=== PATIENT | female | born 1945 | race Caucasian/White ===

== ENCOUNTER 2022-05-04 16:12 | Inpatient (IN) | payer OTHER ==
[~2022-05-04] VITALS: Ht 147.3 cm; Wt 44.5 kg
--- NOTE | 2022-05-04 16:37 | NUR ---
Patient is in CT scan@this time.
[2022-05-04] MEDS ORDERED: MORPHINE SULFATE 2 MG/1 ML DISP.SYRIN ONE (16:47)
[2022-05-04] MEDS ORDERED: SITA50TA PO (16:50)
[2022-05-04] MEDS ORDERED: CLOP75TA15 PO (16:50)
[2022-05-04] MEDS ORDERED: ATOR40TA PO (16:50)
[2022-05-04] MEDS ORDERED: BENA40TA8 PO (16:50)
[2022-05-04 16:57] LABS: CREATININE 0.6 mg/dL (0.6-1.3); POTASSIUM 3.3 mmol/L (3.5-5.1)
[2022-05-04] MEDS ORDERED: MORPHINE SULFATE 2 MG/1 ML DISP.SYRIN IV ONE (17:00)
[2022-05-04 17:08] LABS: BILIRUBIN,TOTAL 0.2 mg/dL (0.2-1.0); TOTAL PROTEIN, SERUM 5.5 g/dL (6.4-8.2)
[2022-05-04 17:12] LABS: HEMATOCRIT 28.5 % (31.2-41.9); MEAN CORPUSCULAR HEMOGLOBIN 30.1 uug (24.7-32.8); MEAN CORPUSCULAR VOLUME 92.7 fL (75.5-95.3); PLATELET COUNT (AUTO) 164 K/uL (179-408)
--- NOTE | 2022-05-04 17:28 | NUR ---
Patient is resting comfortably on gurney with eyes closed, no moaning heard and less restlessness seen, respiration:easy.
[2022-05-04 18:17] LABS: *BILIRUBIN,URIN NEGATIVE (NEGATIVE); *BLOOD, URINE NEGATIVE (NEGATIVE); *CLARITY,URINE CLEAR (CLEAR); *COLOR,URINE YELLOW (YELLOW); *KETONES,URINE NEGATIVE (NEGATIVE); *UROBILINOGEN,URINE 0.2 E.U./dl (NORMAL); LEUKOCYTE ESTERASE ,URINE NEGATIVE (NEGATIVE); NITRITE, URINE NEGATIVE (NEGATIVE); UGLUCOSE NEGATIVE (NEGATIVE)
--- NOTE | 2022-05-04 18:34 | NUR ---
Patient ambulated to bathroom from room 1A with one-person assist. Patient's daughter said that she can not take care of her mother now and that the patient needs more intensive nursing care.
--- NOTE | 2022-05-04 18:44 | NUR ---
"Plan to admit " per Dr Alvarado. Nursing endless track vehicle supervisor Jose Luis, ER registration staff Opal and 3rd floor staff Sundeep notified.
[2022-05-04] MEDS ORDERED: CIPROFLOXACIN HCL 250 MG TABLET PO ONE (18:45)
--- NOTE | 2022-05-04 18:48 | NUR ---
Still for COVID swab & po Cipro, nursing hands off report given to ALEXX Burgos.
--- NOTE | 2022-05-04 19:17 | NUR ---
Patient is waiting for available medical-surgical nurse & bed. [facility] hsopitalist BERNARDINO Gaines accepted the patient. SBAR to ALEXX Encarnacion
--- NOTE | 2022-05-04 19:18 | NUR ---
SBAR REPORT RECEIVED FROM ALEXX RODRÍGUEZ.
--- NOTE | 2022-05-04 20:21 | NUR ---
ASSISTED PT TO AMBULATE TO RESTROOM, STEADY GAIT, DENIES ANY DIZZYNESS/PRASAD. NO SOB OR LABORED BREATHING.
--- NOTE | 2022-05-04 21:34 | NUR ---
GAVE REPOT TO ALEXX RODRIGUEZ.
--- NOTE | 2022-05-04 21:40 | NUR ---
REPORT RECEIVED FROM ER NURSE SRAAH. PT WILL BE ADMITTED TO [facility].
[2022-05-04] MEDS ORDERED: DEXTROSE 50% 50 ML DISP.SYRIN IV PRN (22:00)
[2022-05-04] MEDS ORDERED: INSULIN REGULAR, HUMAN 300 UNIT/3 ML VIAL SQ PRN (22:00)
[2022-05-04] MEDS ORDERED: REMEDY ESSENTIAL ZINC PASTE 113 GM TP PRN (22:00)
[2022-05-04] MEDS ORDERED: ONDANSETRON 4 MG/2 ML VIAL IV PRN (22:00)
[2022-05-04] MEDS ORDERED: POTASSIUM CHLORIDE 20 MEQ TAB.PRT.SR PO ONE (22:00)
[2022-05-04 22:30] VITALS: BP 163/68
[2022-05-04 23:00] VITALS: BP 163/68
--- NOTE | 2022-05-04 23:00 | NUR ---
RECEIVED PT FROM ER ON A GOURNEY. PT IS AOX3, AMBULATORY W/ ASSIST, FARCI SPEAKING BUT CAN UNDERTAND LITTLE KENYAN. PRIMARY DX IS ABDOMINAL PAIN/ DIARRHEA SECONDARY TO FAILURE TO THRIVE. PT SKIN IS INTACT. IV ACCESS ON LEFT HAND 22G SALINE LOCK.
--- NOTE | 2022-05-04 23:10 | NUR ---
Pt. admitted to Med Surg , under care of George Gaines Belongs List completed
[2022-05-05] MEDS: ENOXAPARIN SODIUM 40 MG/0.4 ML DISP.SYRIN SQ SCH ×2 (00:09→20:46)
[2022-05-05 04:00] VITALS: BP 147/63
[2022-05-05] MEDS: BLOOD SUGAR DIAGNOSTIC 1 EACH STRIP VI SCH ×4 (06:07→20:51)
[2022-05-05] MEDS: PANTOPRAZOLE SODIUM 40 MG TABLET.DR PO SCH (06:08)
[2022-05-05 06:42] LABS: HEMATOCRIT 32.1 % (31.2-41.9); MEAN CORPUSCULAR HEMOGLOBIN 30.8 uug (24.7-32.8); MEAN CORPUSCULAR VOLUME 94.5 fL (75.5-95.3); PLATELET COUNT (AUTO) 192 K/uL (179-408)
[2022-05-05 07:09] LABS: THYROID STIMULATING HORMONE 0.626 mIU/mL (0.358-3.740)
[2022-05-05 07:27] LABS: CREATININE 0.6 mg/dL (0.6-1.3); MAGNESIUM 1.6 mg/dL (1.8-2.4)
[2022-05-05 07:52] VITALS: BP 142/70
--- NOTE | 2022-05-05 09:31 | NUR ---
Patient sleeping. Will administer medication when patient awakens.
[2022-05-05] MEDS: CLOPIDOGREL 75 MG TABLET PO SCH (09:49)
[2022-05-05] MEDS: ACETAMINOPHEN 325 MG TABLET PO PRN ×2 (09:49→20:46)
[2022-05-05] MEDS: BENAZEPRIL HCL 20 MG TABLET PO SCH (09:50)
[2022-05-05] MEDS ORDERED: POTASSIUM CHLORIDE 50 ML IV SCH (11:00)
[2022-05-05] MEDS ORDERED: MAGNESIUM OXIDE 400 MG TABLET PO ONE (11:00)
--- NOTE | 2022-05-05 12:06 | NUR ---
Patient pulled out IV line numerous times. Attempted to start new line, unsuccessful. Order for midline insertion placed. George LEBRON notified. insurance office supervisor, Magdalena, notified.
[2022-05-05] MEDS ORDERED: FLEET ENEMA 133 ML BOTTLE RC ONE (12:30)
[2022-05-05] MEDS ORDERED: POTASSIUM CHLORIDE 20 MEQ POWDER PACKET PO ONE ×2 (13:00→15:00)
[2022-05-05] MEDS ORDERED: POTASSIUM CHLORIDE 10 MEQ, LIDOCAINE-MPF 1% 1 ML in IV DEXTROSE 5% 100 ML IV SCH (14:00)
[2022-05-05 14:59] VITALS: BP 122/56
--- NOTE | 2022-05-05 15:04 | NUR ---
Patient only able to take sips of Klor-con powder, mixed with water. Left at bedside to help promote hydration .
[2022-05-05] MEDS: GLUCERNA SHAKE 237 ML CAN PO SCH (17:29)
[2022-05-05] MEDS ORDERED: ATORVASTATIN 40 MG TABLET PO SCH ×2 (18:00→21:00)
--- NOTE | 2022-05-05 18:34 | NUR ---
Patient received care well throughout shift despite language barrier. Patient unwilling to finish medications given, because patient did not want to. Reinforced to patient the importance of taking medications, such as Klor-Con. Patient constantly needing to be reminded to take medication, but still unwilling. Will endorse information to PM nurse on perhaps switching back to IV meds, if midline placed, and patient stops pulling on lines. Bed left in lowest position with call light within reach. Comfort measures provided. Will endorse information to PM nurse.
--- NOTE | 2022-05-05 19:30 | NUR ---
Pt awake,alert and orientedx3. Pt in no acute distress. Pt have no iv access. Pt encourage to drink her Klor-Con. Pt just wants to take sip of it. Safety and comfort provided. Will continue to monitor.
[2022-05-05 20:06] VITALS: BP 124/58
--- NOTE | 2022-05-06 00:04 | NUR ---
[facility] Dr. Biswas ordered Soft wrist restraint bilateral. Pt trying to pull out her Iv and the kerlix placed on top of her IV.
[2022-05-06 04:06] VITALS: BP 130/65
--- NOTE | 2022-05-06 05:45 | NUR ---
Pt assisted to the restroom. Pt removed her IV and squeezing the blood . Pt assisted back to bed.
[2022-05-06] MEDS: PANTOPRAZOLE SODIUM 40 MG TABLET.DR PO SCH (06:10)
[2022-05-06] MEDS: BLOOD SUGAR DIAGNOSTIC 1 EACH STRIP VI SCH ×2 (06:37→11:51)
--- NOTE | 2022-05-06 06:42 | NUR ---
Pt in no acute distress. Prescribed medication given and pt tolerated it well. Pt stable. Pt assisted to the restroom. Pt forgetful and Pt needs reorientation. Pt vital signs stable. Self inflicted injury on her right hand noted where she pulled her Iv and squeezed her blood ; photo taken and put on the chart. Will endorse to incoming nurse for continuity of care.
[2022-05-06 06:59] LABS: HEMATOCRIT 30.8 % (31.2-41.9); MEAN CORPUSCULAR VOLUME 92.9 fL (75.5-95.3); PLATELET COUNT (AUTO) 193 K/uL (179-408)
[2022-05-06 07:10] LABS: CREATININE 0.7 mg/dL (0.6-1.3); MAGNESIUM 1.7 mg/dL (1.8-2.4); POTASSIUM 3.5 mmol/L (3.5-5.1)
[2022-05-06] MEDS: GLUCERNA SHAKE 237 ML CAN PO SCH (08:49)
[2022-05-06] MEDS: CLOPIDOGREL 75 MG TABLET PO SCH (08:50)
[2022-05-06] MEDS: BENAZEPRIL HCL 20 MG TABLET PO SCH (08:50)
[2022-05-06] MEDS ORDERED: MAGNESIUM OXIDE 400 MG TABLET PO ONE (09:15)
[2022-05-06] MEDS ORDERED: CYANOCOBALAMIN 1000 MCG/ML VIAL IM ONE (09:30)
[2022-05-06] MEDS: ACETAMINOPHEN 325 MG TABLET PO PRN (10:35)
[2022-05-06 11:01] VITALS: BP 123/57
[2022-05-06] MEDS ORDERED: CYAN10006 IM (12:51)
--- NOTE | 2022-05-06 14:00 | NUR ---
pLAN IS TO DISCHARGE PT TODAY. pT WILL BE GOING TO [facility]. SCHEDULED FIRST HELPER AT 1600. CALLED AND GAVE REPORT TO NURSE ANN AT FACILITY.
[2022-05-06 14:59] VITALS: BP 138/69
--- NOTE | 2022-05-06 16:00 | NUR ---
Pt has been discharged. Daughter in law called and stated that she will no longer be going to [facility], family prefers pt to go home. Daughter in law at bedside, provided all discharge education and materials. Advised to follow up with PCP and provided discharge instructions for outpatient colonoscopy to be scheduled per MD. IV and ID band removed. All personal belongings taken by daughter in law. Pt was wheeled down by [facility]UMBER [facility]ER.
== END 2022-05-06 16:00 | disposition home or self-care (01) | DRG 392 ==
LOC: ER 16:14 → MEDSURG3 22:56
PROVIDERS: ADMIT Nurse Practitioner Family; ATTEND Nurse Practitioner Family
DX: K59.00 Constipation, unspecified (principal); E44.0 Moderate protein-calorie malnutrition; I69.351 Hemiplegia and hemiparesis following cerebral infarction affecting right dominant side; K62.89 Other specified diseases of anus and rectum; R62.7 Adult failure to thrive; Z68.20 Body mass index [BMI] 20.0-20.9, adult; D64.9 Anemia, unspecified; E11.9 Type 2 diabetes mellitus without complications; E53.8 Deficiency of other specified B group vitamins; E87.6 Hypokalemia; E88.09 Other disorders of plasma-protein metabolism, not elsewhere classified; I10 Essential (primary) hypertension; K80.20 Calculus of gallbladder without cholecystitis without obstruction; Z20.822 Contact with and (suspected) exposure to COVID-19
CPT/HCPCS: 36415; 51702; 71045; 83550; 83690; 83735; 84443; 85025; 86625; 87046; 93005; 97161; A4663; G0378; J1650; J1815; J2001; J2270; J3420; J3480; U0003